=== PATIENT | female | born 1935 | race Asian ===

== ENCOUNTER 2023-10-06 20:40 | Observation (INO) | payer MEDICARE, OTHER, SELFPAY ==
[2023-10-06 15:33] VITALS: BMI 20.7
[2023-10-06 15:39] VITALS: BP 121/59
[2023-10-06 15:43] LABS: Glucose - Point of Care 326 mg/dl (70-99)
[2023-10-06 15:59] LABS: % Basophils 0.3 % (0-2); % Eosinophils 1.5 % (0-6); % Immature Granulocytes 0.7 % (0-0.5); % Monocytes 6.5 % (1.7-9.3); Absolute Eosinophils 0.1 10^3/uL (0-0.7); Absolute Lymphocytes 1.7 10^3/uL (1.2-3.4); Absolute Monocytes 0.4 10^3/uL (0.1-0.6); Absolute Neutrophils 3.9 10^3/uL (1.4-6.5); Hematocrit 33.7 % (37.0-47.0); Hemoglobin 11.1 g/dL (12.0-16.0); Mean Corp Hgb Conc. 32.9 g/dL (33.0-37.0); Mean Corpuscular Hgb 30.1 pg (27.0-31.0); Mean Corpuscular Volume 91.3 fL (81.0-99.0); Mean Platelet Volume 9.5 fL (7.4-10.4); Nucleated Red Blood Cells % 0 %; Platelet Count 317 10^3/uL (130-400); Red Blood Cell Count 3.69 10^6/uL (4.20-5.40); Red Cell Dist. Width 13.8 % (11.5-14.5); White Blood Cell Count 6.1 10^3/uL (4.8-10.8)
[2023-10-06 16:22] LABS: ALT (SGPT) 21 U/L (0-35); AST (SGOT) 27 U/L (14-36); Albumin 4.1 g/dl (3.5-5.0); Alkaline Phosphatase 106 U/L (38-126); Blood Urea Nitrogen 31 mg/dl (7-17); Calcium 9.4 mg/dl (8.4-10.2); Carbon Dioxide 25 mmol/L (22-30); Chloride 102 mmol/L (98-107); Glucose 277 mg/dl (70-99); Potassium 4.7 mmol/L (3.5-5.1); Sodium 138 mmol/L (135-145); Total Bilirubin 0.5 mg/dl (0.2-1.3); Total Protein 6.7 g/dl (6.3-8.2); eGFR 48.63
--- NOTE | 2023-10-06 17:46 | ED.GENMED ---
History of Present Illness
General
Chief Complaint: Dizziness
Time Seen by Provider: 10/06/23 17:33
Travel History
Have you had any contact with someone who has COVID-19?: No
Do you have any symptoms of coronavirus? Fever > 100 degrees, chills, cough, shortness of breath, sore throat, loss of taste or smell, muscle aches, or headache?: No
History of Present Illness
History of Present Illness:
88-year-old female history of atrial fibrillation on Eliquis, CAD, CHF, hypertension, hyperlipidemia, diabetes presenting with visual changes. Patient states that on 10/03, she noticed that she was having double vision while at lunch. Patient
states that she continued to have double vision until yesterday. Patient states that today she was did not have double vision but had blurry vision. Patient reports dizziness secondary to blurry vision. Patient reports chronic right hand numbness
which is unchanged from baseline. Patient denies other numbness, weakness, tingling, slurred speech, fever, chills, chest pain, shortness of breath, or urinary symptoms.
Past History
Past History
ED Past Medical History: Arrthythmia (atrial fibrillation), CAD (nonobstructive), CHF, Fibromyalgia, HTN, Hypercholesterolemia, NIDDM (Diet controlled), Valvular disease, Hypothyroidism, Psychiatric (generalized anxiety disorder), Other ( severe
pulmonary hypertension, vitamin D deficiency, Vertigo,), Other (alopecia, vertigo in 2017, neuropathy, anemia) and Other (bilateral pleural effusions, right-sided pneumonia)
ED Past Surgical History: Appendectomy, Cardiac (Bilateral carotid artery stent, SANTOS, valve replaced), Cholecystectomy, (times 5), Gynecological (Hysterectomy), Orthopedic (right rotator cuff repair; cortisone injections to back) and Other
(cataract extraction 2006, 2007; right thoracentesis January 2020, Dev carotid stents)
Social History
Tobacco: Non-smoker
Alcohol: None
Drug: None
Personal:
Living: alone
Family History
Family History: Other (reviewed and noncontributory)
Phy Exam
Physical Exam
Physical Exam:
General: Alert, no acute distress
Head: NCAT
Eyes: clear conjunctiva, PERRLA, EOMI
Neck: supple
Cardiac: regular rate and rhythm, no murmur
Lungs: clear to auscultation bilaterally. No wheezes, rales, or rhonchi. Speaking full unlabored sentences. No respiratory distress.
Abdomen: soft, nondistended nontender. No rebound or guarding.
MSK: no lower extremity edema bilaterally. No deformity
Skin: warm, dry
Neuro: Alert and oriented x3. Cranial nerves II through XII grossly intact no focal deficits. 5/5 strength bilateral upper lower extremities. No pronator drift bilateral upper and lower extremities. Normal finger-nose. Visual jerez intact, but
patient states fingers are blurry. No slurred speech. Not aphasic.
Course
Orders/Labs/Results
Orders:
Orders
10/06/23 15:42
Electrocardiogram (*1) Urgent
Reason for Study: Vertigo / Dizzy
EKG- Treatment ONCE
10/06/23 15:52
Complete Blood Count/With Diff Urgent
Comprehensive Metabolic Panel Urgent
10/06/23 17:44
CT Head W/o Iv Contrast Urgent
Comment:
Reason For Exam: dizziness, blurry vision
Abnormal Lab Results
10/06/23 10/06/23
15:41 15:52
RBC 3.69 L 10^6/uL
(4.20-5.40)
Hgb 11.1 L g/dL
(12.0-16.0)
Hct 33.7 L %
(37.0-47.0)
MCHC 32.9 L g/dL
(33.0-37.0)
Immature Gran % 0.7 H %
(0-0.5)
BUN 31 H mg/dl
(7-17)
Creatinine 1.1 H mg/dL
(0.6-1.0)
Glucose 277 H mg/dl
(70-99)
POC Glucose 326 H mg/dl
(70-99)
10/06/23 15:52
10/06/23 15:52
Vital Signs
Initial and Last Documented VS:
Initial Vital Signs
Temp Pulse Resp BP Pulse Ox
99.4 F 78 16 121/59 97
10/06/23 15:39 10/06/23 15:39 10/06/23 15:39 10/06/23 15:39 10/06/23 15:39
Last Documented Vital Signs
Temp Pulse Resp BP Pulse Ox
99.4 F 78 16 121/59 97
10/06/23 15:39 10/06/23 15:39 10/06/23 15:39 10/06/23 15:39 10/06/23 15:39
MDM/Problems Addressed
MDM/Problems Addressed:
Patient presents to the Emergency Department with ___blurry vision
Number and Complexity of Problems Addressed at the Encounter
� Chronic conditions affecting care:
� Acute Exacerbation and/or Progression of Chronic Illness:
� Differential Diagnosis includes: Stroke, TIA, intracranial hemorrhage, electrolyte abnormality, medication side effect
Amount and/or Complexity of Data to be Reviewed and Analyzed
� I performed an independent evaluation of and my interpretation is:
EKG: NSR at 77bpm with IL 184 QTc 470 no acute ischemic changes
CT:
Xrays:
Laboratory Studies: Hyperglycemic to 277. Anion gap 11, electrolytes within normal limits. No DKA.
Other:
� Review of other/old records reveals:
� Clinical information was obtained by an independent historian:
� Prescriptions/Medications Considered but not given:
� Further testing considered but not performed:
Risk of Complications and/or Morbidity or Mortality of Patient Management
� Social Determinants of health affecting care:
� Discussion with other providers (PCP, Hospitalists, Consultants, etc):
� Escalation of care including admission/observation vs risk of discharge considered:88yoF hx afib on eliquis, HTN, HLD, CAD, CHF, DM, presenting with visual changes. Patient states she had diplopia starting 2 days ago which improved today, but now
has blurry vision. Patient reports dizziness due to blurry vision. Neurologically intact including visual jerez. CT head unremarkable. Discussed with hospitalist who accepts for admission
*Critical Care Note
Total Time (30-74mins, 75-104mins- exclusive of procedures): Not Applicable
ED Attending Note
-
Portions of this chart may have been created with voice recognition software.� Occasional wrong word or��sound alike� substitutions may have occurred due to the inherent limitations of voice recognition software.
Discharge Plan
Departure
Patient Disposition: Admit
Date of Disposition: 10/06/23
Time of Disposition: 19:16
Admit to: Telemetry
Presentation/result/management discussed w/ accepting MD/DO: Hospitalist
Discharge Problem:
Diplopia
Prescriptions:
No Action
Eliquis 2.5 MG tablet
2.5 mg PO BID Qty: 30 0RF
duloxetine 60 MG capsule,delayed release(DR/EC)
60 mg PO DAILY
amiodarone [Pacerone] 200 MG tablet
100 mg PO DAILY
furosemide 20 MG tablet
60 mg PO DAILY
potassium chloride [Klor-Con M20] 20 MEQ tablet,ER particles/crystals
20 meq PO DAILY
atorvastatin 40 MG tablet
40 mg PO HS
levothyroxine 50 mcg tablet
50 mcg PO DAILY
metformin 1,000 mg tablet
1,000 mg PO BIDWMEAL
allopurinol 300 mg tablet
300 mg PO DAILY@1400
lisinopril 2.5 mg tablet
2.5 mg PO DAILY
gabapentin 300 MG capsule
300 mg PO BID@1400,2200
diltiazem HCl 120 MG capsule,extended release 24hr
120 mg PO DAILY@1400
Referrals:
Tara Anna MD [Family Provider] -
Interventions
Interventions:
*Risk Screen - Suicide Last Done: 10/06/23 17:15
*General Assessment Last Done: 10/06/23 17:15
*Neglect/Abuse Screening Last Done: 10/06/23 17:15
ED- Fall Risk Assessment Last Done: 10/06/23 17:15
*ED COVID-19 Vaccine History Last Done: 10/06/23 15:39
ED- Neurological Assessment Last Done: 10/06/23 17:15
ED- Cardiac Assessment Last Done: 10/06/23 17:15
Discharge Date and Time
Print Language: MALAY
--- NOTE | 2023-10-06 20:26 | HPS.HSE ---
Addendum entered and electronically signed by Sandy Urrutia MD 10/06/23 21:02:
see update for addendum
Original Note:
Family Physician
-
Family Physician: Tara Anna
Chief Complaint
-
Double Vision
History of Present Illness
This is a 88 year old female with a past medical history of a-fib on Eliquis, hypertension, diabetes, hypothyroidism and carotid artery stenosis who presents for double vision x 2 days. She states she was having lunch on Friday and when she got up
to leave, she suddenly started with double vision which led her to feel unsteady on her feet and 'woozy.' She reports double vision as been presents for the past two day. She notes that when she closes one eye, her double vision resolves. She
present to the ED today as vision is now blurry in addition to having double vision. She was admitted in 07/2020 for diplopia and was found to have carotid artery stenosis, but never followed up on this post discharge. She also states she last saw
her ophthalmic nurse 1 month ago and there were no concerns at that time. She denies numbness, weakness in extremities, chest pain, palpitations, photophobia, headache, SOB, lightheadedness, loss of consciousness or notable fall/ trauma to the head.
Medical History
Past Medical History
Past Medical History: Reports Other
Additional Past Medical History:
Carotid Artery Stenosis
Paroxysmal Atrial Fibrillation
Chronic HFpEF
Essential Hypertension
Hyperlipidemia
Diabetes Mellitus, Type II
Hypothyroidism
Anxiety
Fibromyalgia
Peripheral Neuropathy
Gout
Past Surgical History: Reports Other
Additional Past Surgical History:
Mitral Valve Repair
Cholecystectomy
Social History
Tobacco: Non-smoker
Family History
Family History: Not pertinent
Allergies / Home Medications
Allergies reflects when Allergies were last updated in [facility].
Home Medications with original date entered in [facility]
Allergy/Medication List:
Allergies
Allergy/AdvReac Type Severity Reaction Status Date / Time
cyclobenzaprine Allergy Dry Mouth Verified 10/06/23 15:41
ondansetron Allergy Unknown Verified 10/06/23 15:41
prochlorperazine Allergy Anaphylaxis Verified 10/06/23 15:41
Home Medications
apixaban 2.5 mg tablet (Eliquis) 2.5 mg PO BID #30 tabs 02/28/20
duloxetine 60 mg capsule,delayed release 60 mg PO DAILY Mental health 03/21/20
amiodarone 200 mg tablet (Pacerone) 100 mg PO DAILY Arrhythmia 04/14/20
furosemide 20 mg tablet 60 mg PO DAILY Fluid retention/Swelling 04/26/20
atorvastatin 40 mg tablet 40 mg PO HS High cholesterol 08/07/20
potassium chloride 20 mEq tablet,extended release(part/cryst) (Klor-Con M) 20 meq PO DAILY Electrolyte Repletion 08/07/20
allopurinol 300 mg tablet 300 mg PO DAILY@1400 10/06/23
diltiazem HCl 120 mg capsule,extended release 24 hr 120 mg PO DAILY@1400 10/06/23
gabapentin 300 mg capsule 300 mg PO BID@1400,2200 10/06/23
levothyroxine 50 mcg tablet 50 mcg PO DAILY 10/06/23
lisinopril 2.5 mg tablet 2.5 mg PO DAILY 10/06/23
metformin 1,000 mg tablet 1,000 mg PO BIDWMEAL 10/06/23
Review of Systems
-
A 12 point ROS was completed and negative except as noted: Yes
Constitutional: Denies Fever or Chills
Respiratory: Denies Cough or Trouble Breathing
Cardiac: Denies Chest Pain or Palpitations
Physical Exam
Vital Signs
Vital Signs
Temp Pulse Resp BP Pulse Ox
99.4 F 78 16 121/59 97
10/06/23 15:39 10/06/23 15:39 10/06/23 15:39 10/06/23 15:39 10/06/23 15:39
Physical Exam
General: Comfortable and Conversant
HEENT: Anicteric and Moist mucous membranes
Respiratory: Clear and Non Labored Respirations
Cardiac: S1/S2 and Regular Rhythm; No Carotid Bruits
GI: Soft and Non Tender
Musculoskeletal: No Clubbing, No Cyanosis and No Edema
Skin: Warm and Dry
Neuro: Awake, Alert, Oriented, Nonfocal/grossly intact and Other (PERRL: EOM appear intake though exam is difficult due to frequent blinking in setting of double vision; Patient notes double vision is worsen when looking to the periphery )
Psych: Calm
Laboratory Results
-
10/06/23 15:52
10/06/23 15:52
Laboratory Results
Total Bilirubin 0.5 mg/dl (0.2-1.3) 10/06/23 15:52
AST 27 U/L (14-36) 10/06/23 15:52
ALT 21 U/L (0-35) 10/06/23 15:52
Alkaline Phosphatase 106 U/L (38-126) 10/06/23 15:52
Data Reviewed
-
CT Scan: Report Reviewed by me
Lab Data: Labs Reviewed by me
Old Records: Reviewed
Impression/Plan
-
Visual Disturbance, possible TIA/CVA
-Consult Neurology
-Check Brain MRI with/without contrast
-Add aspirin 81mg Daily
-Will likely need further head/neck vessel imaging to be determined by Neurology
Paroxysmal Atrial Fibrillation
-Continue amiodarone and diltiazem
-Continue Eliquis
Chronic HFpEF
-Continue furosemide
-Monitor Is&Os and Daily Weights
Essential Hypertension
-Continue lisinopril
Hyperlipidemia
-Continue atorvastatin
Diabetes Mellitus, Type II
-Hold metformin
-Monitor sugars and continue coverage insulin
Hypothyroidism
-Continue levothyroxine
Fibromyalgia
-Continue duloxetine
Peripheral Neuropathy
-Continue gabapentin
DVT proph: Eliquis
Code Status: Full Code
[2023-10-06] MEDS: LOW STRENGTH ASPIRIN 81 MG PO (20:51)
[2023-10-06 20:52] VITALS: BP 149/65
[2023-10-06 20:53] VITALS: BMI 19.9
--- NOTE | 2023-10-06 20:54 | PTCARENOTE ---
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
--- NOTE | 2023-10-06 21:03 | W.PN.UPDATE ---
Update Note
Progress Note Update
I saw and examined the patient.
The ALESSANDRA Dial's note was reviewed and I agree with the note.
Comment: 88 y/o F, hx of Afib, Eliquis, HTN, DM presents to ER for double vision x 2 days, began Friday at lunch time. Sudden onset with feeling 'woozy' and unsteady. Symptoms have persisted for 2 days. The symptom improves with closing 1 eye. Now
today her vision is blurred. Most previously admitted in july 2020 for diplopia and found to have carotid artery stenosis but did not ollow up. Last saw her eye physician 1 month ago with no concerns. She denies numbness, weakness in extremities,
chest pain, palpitations, photophobia, headache, SOB, lightheadedness, loss of consciousness or notable fall/ trauma to the head. No other complaints.
Physical Exam
General: Comfortable and Conversant
HEENT: Anicteric and Moist mucous membranes
Respiratory: Clear and Non Labored Respirations
Cardiac: S1/S2 and Regular Rhythm; No Carotid Bruits
GI: Soft and Non Tender
Musculoskeletal: No Clubbing, No Cyanosis and No Edema
Skin: Warm and Dry
Neuro: Awake, Alert, Oriented, Nonfocal/grossly intact and Other (PERRL: EOM appear intake though exam is difficult due to frequent blinking in setting of double vision; Patient notes double vision is worsen when looking to the periphery )
Psych: Calm
Assessment:
Visual Disturbance, possible TIA/CVA
-Consult Neurology
-Check Brain MRI with/without contrast
-Add aspirin 81mg Daily to Eliquis
-Will likely need further head/neck vessel imaging to be determined by Neurology (per Dr. Hearn's TT, will assess in AM)
Paroxysmal Atrial Fibrillation
-Continue amiodarone and diltiazem
-Continue Eliquis
Chronic HFpEF
-Continue furosemide
-Monitor Is&Os and Daily Weights
Essential Hypertension
-Continue lisinopril
Hyperlipidemia
-Continue atorvastatin
Diabetes Mellitus, Type II
-Hold metformin
-Monitor sugars and continue coverage insulin
Hypothyroidism
-Continue levothyroxine
Fibromyalgia
-Continue duloxetine
Peripheral Neuropathy
-Continue gabapentin
DVT ppx: Boy
Code Status: Full Code
[2023-10-06 21:46] VITALS: BP 144/69; BMI 19.9
[2023-10-06 21:53] LABS: Glucose - Point of Care 150 mg/dl (70-99)
--- NOTE | 2023-10-06 22:00 | PTCARENOTE ---
Patient admitted from ED. Patient AAO x3, on RA, in no acute distress. Patient placed on tele monitor. Patient oriented to room and call gill is within reach.
[2023-10-06] MEDS: NEURONTIN 300 MG PO (22:05)
[2023-10-06] MEDS: LIPITOR 40 MG PO (22:05)
[2023-10-06] MEDS: MELATONIN 5 MG PO (22:44)
[2023-10-06 23:35] VITALS: BP 95/76
[2023-10-07 03:55] VITALS: BP 115/47
[2023-10-07] MEDS: SYNTHROID 50 MCG PO (05:28)
[2023-10-07 06:00] VITALS: BMI 19.7
[2023-10-07 07:30] VITALS: BP 131/74
[2023-10-07 07:35] LABS: Glucose - Point of Care 124 mg/dl (70-99)
--- NOTE | 2023-10-07 08:14 | W.PN.HOSP.TC ---
Addendum entered and electronically signed by Crescencio Lo DO 10/07/23 14:27:
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
The stroke likely explains her vision complaints on admission. Discussed with neurology. Recommend to continue Eliquis on discharge. Hold off on adding aspirin and they will reconsider as outpatient.
MRA head and neck shows severe stenosis greater than 70% diameter in the proximal right internal carotid artery, less than 25% stenosis of the proximal left internal carotid artery. Carotid stenosis would not explain her stroke.
Neurology recommends discharge with outpatient follow-up.
I updated daughter (Milla) on the phone. Recommend tighter glucose control. Hemoglobin A1c 8.0%. Also recommend that patient start checking her blood pressures at home to tighten up her hypertension control.
Follow-up with PCP and neurology, vascular surgery.
Addendum entered and electronically signed by Crescencio Lo DO 10/07/23 08:52:
I spoke with neurology, Dr. Valenzuela does not feel that her vision complaints are vascular in etiology. He believes it is due to extraocular muscle dysfunction. Possibly neuropathy related. Await MRI. Does not recommend vascular consult.
Original Note:
Today's Communication/Plan
-
Await brain MRI
Neurology consult
Assessment / Plan
Assessment / Plan
Gen-AAOx3, NAD
HEENT-NC, AT, anicteric, clear oral mm
Neck-supple
CV-reg, no M, +S1/S2
Lungs-clear B/L
Abd-soft, NT, ND
Ext-no edema
Musculoskeletal-no cyanosis, clubbing
Skin-warm and dry
Neuro-grossly non-focal
Psych-calm, cooperative
Diplopia -primarily involving the right eye, symptoms started on October 03. Extraocular muscles intact. Known significant right carotid stenosis. Concern for stroke. Await brain MRI. Neurology consulted. Aspirin added.
Right carotid stenosis -confirmed on CTA July 2020, proximal right ICA stenosis 70 to 75%. Left carotid without significant narrowing. Dominant right vertebral artery.
Paroxysmal atrial fibrillation -continue amiodarone, Eliquis.
Chronic heart failure preserved EF -stable.
Essential hypertension -stable.
Hyperlipidemia -continue atorvastatin.
DM2 with hyperglycemia -hemoglobin A1c pending. On metformin 1000 mg twice daily at home.
Hypothyroidism -continue levothyroxine.
Fibromyalgia
Chronic peripheral neuropathy
Gout
Full code
Anticipated Discharge: Within 24 hours
Subjective/Interval History
-
Date of Service: October 07, 2023
Patient seen and examined. Still with blurry vision.
Objective Data
-
Labs:
Laboratory Results
10/07/23
07:57
WBC Pending
Hgb Pending
Hct Pending
Plt Count Pending
Sodium Pending
Potassium Pending
Chloride Pending
Carbon Dioxide Pending
BUN Pending
Creatinine Pending
Glucose Pending
Calcium Pending
Vital Signs:
Vital Signs
Temp Pulse Resp BP Pulse Ox
98 F 80 16 131/74 96
10/07/23 07:30 10/07/23 07:30 10/07/23 07:30 10/07/23 07:30 10/07/23 07:30
I&O
10/06/23 10/07/23 10/08/23
06:59 06:59 06:59
Output Total 150 / 150
Balance -150 / -150
Review of Systems
-
History Source: Patient
All other systems: Reviewed and negative
[2023-10-07] MEDS: NOVOLOG FLEXPEN-LOW RESISTANCE SC (08:25)
[2023-10-07 08:28] LABS: Hematocrit 37.2 % (37.0-47.0); Hemoglobin 11.9 g/dL (12.0-16.0); Mean Corpuscular Hgb 29.8 pg (27.0-31.0); Mean Platelet Volume 9.7 fL (7.4-10.4); Platelet Count 352 10^3/uL (130-400); Red Cell Dist. Width 13.7 % (11.5-14.5); White Blood Cell Count 7.5 10^3/uL (4.8-10.8)
[2023-10-07] MEDS: KCL 20 MEQ PO (08:30)
[2023-10-07] MEDS: LASIX 60 MG PO (08:30)
[2023-10-07] MEDS: PACERONE 100 MG PO (08:31)
[2023-10-07] MEDS: ZESTRIL 2.5 MG PO (08:31)
[2023-10-07] MEDS: CYMBALTA DELAYED RELEASE 60 MG PO (08:31)
[2023-10-07] MEDS: ELIQUIS 2.5 MG PO (08:31)
--- NOTE | 2023-10-07 08:31 | CON.NEURO4 ---
Addendum entered and electronically signed by Yan Valenzuela MD 10/07/23 13:43:
MRI of the brain demonstrates an acute ischemic stroke in the right 6th nerve nucleus. This does not unfortunately alter our current course of the patient which would be a goal of normoglycemia.
Addendum entered and electronically signed by Yan Valenzuela MD 10/07/23 10:48:
Studies reviewed.
I have personally examined the patient. I reviewed and agree with the COMMUNITY HEALTH PLANNING DIRECTOR's Note.
My addenda:
Awake, alert, interactive. No acute distress.
Speech intact.
Follows 2-step requests w/o difficulty. No tremor.
Extra-ocular movements grossly intact.
Facial movements full and symmetric. Hearing intact to normal conversational volume.
Normal UE movements bilaterally.
Neck: full ROM.
Chest: no dyspnea
Heart: no JVD
Ext: (-) Clubbing, (-) Cyanosis, (-) Edema
IMPRESSIONS/RECOMMENDATIONS:
Abrupt onset of recurrent diplopia, last in 2020
Most likely due to eye misalignment which in turn is most likely secondary to elevated glucose
Check blood work for potential metabolic causes
Patient should meet with [employer]oure[employer] printer or van driver helper for eye alignment exercises to help remediate
We will follow MRI of brain and MRA of neck
Eventual evaluation by vascular surgery due to known carotid artery narrowing
Will continue to follow pending results.
Original Note:
Documented by User: Domi Pfeiffer NP 10/07/23 10:07
Consultation - Neurology 4
-
CONSULTING PHYSICIAN: Yan Valenzuela MD
REFERRING PHYSICIAN: Hospitalists/Aury Dial PA-C
DICTATED BY: SUMA Mccurdy
DATE/TIME OF REQUEST: 10/06/23
DATE/TIME OF CONSULTATION: 10/07/23
Reason for Consultation: Diplopia
History of Present Illness:
This is an 88-year-old right-handed female who has presented to the hospital on 5/13/24 with report of diplopia. Patient was previously evaluated by our inpatient Neurology service in July 2020 for similar symptoms.
From previous evaluation by Dr. Valenzuela on 08/07/20:
'Patient presented to this hospital's emergency department with new onset diplopia. 'It's not double vision.' Today at 0600 hours while watching TV, she realized that she was experiencing blurred vision. The patient indicates that she has had
difficulty with sleep and while sitting in front of the television early this morning, experienced the above listed symptom. The patient then stood looked at her own reflection in the mirror and described that reflection as being blurred as were all
objects around her for the following 2 hours. She suggests the problem spontaneously resolved in a gradual fashion. There was no loss of vision. The visual defect was unchanged by bringing objects closer or further. She did not cross cover eyes
during this episode. There have been no prior episodes. Associated symptoms at the time included feeling unsteady on her feet although this is not been a new process. No known modifying factors.
Patient has been experiencing difficulty with staying asleep due to resistance left lower extremity pain which began July 26, 2020. She contacted her primary care physician about this issue and was prescribed gabapentin 100 milligrams at bedtime.
The patient did not begin utilizing that medication until 2 days ago.
She describes her left lower extremity pain as a burning type of sensation which begins distally and radiates up the leg anteriorly crossing at the thigh into mid back above the buttocks. The problem in her left lower extremity associated very that
she strikes her left lower extremity with her right foot bruising the leg. Pain is worse at night. She is more comfortable with her left lower extremity when she bends that knee and is seated instead of reclining.
She also describes herself as having had significant back pain beginning years ago after lifting a heavy object. That location of back pain however is described as mid thoracic in location has been persistent with attempting to lift objects. No
known modifying factors.'
Patient had a MRI brain was obtained and was negative for any acute abnormalities but demonstrated a likely old left occipital lobe infarct and two small foci of old microhemorrhage. MRA neck demonstrated 50-75% R ICA stenosis. Carotid ultrasound
demonstrated 50-69% R ICA stenosis, and CTA neck demonstrated 70-75% R ICA stenosis. Her transient diplopia was thought less likely to be related to R ICA stenosis and she was instructed to follow-up with Vascular Surgery as an outpatient for
carotid surveillance imaging every 6 months. Patient failed to follow-up outpatient.
Patient reports that three days ago on 10/04/23 she was at lunch in the afternoon and when she got up to leave she had a sudden onset of double vision again. The double vision resolved with closing one eye or the other, but persisted through
yesterday (10/06/23), prompting her to come to the ER for evaluation. CT head was obtained on arrival and is negative for any acute findings. On arrival to the ER patient reported that her double vision had turned more into a vision blurring, which
she still endorses today. She denies any headache, dizziness, loss of vision, curtain covering vision, speech/swallow difficulty, nausea, new numbness, weakness, chest pain, palpitations, and shortness of breath. She is taking Eliquis for Afib and
denies missing any doses. She is followed by an van driver helper and reports having a normal exam a little over one month ago.
Past Medical History: Chronic left occipital lobe ischemic stroke, Afib (Eliquis), HTN, HLD, NIDDM, CHF, CAD, bilateral carotid artery stenosis, hypothyroidism, severe mitral regurgitation, gout, vertigo, neuropathy, chronic RUE numbness, anemia,
alopecia, anxiety, depression, fibromyalgia, chronic low back pain, LLE sciatica, B12 deficiency, vitamin D deficiency, insomnia, b/l pleural effusions, pneumonia
Surgical History: b/l cataract extraction, appendectomy, cholecystectomy, right RTC repair, R thoracentesis, mitral valve repair, knee surgery, x5, cortisone injections
Family History: Mother- CVA, sister- CVA.
Social History: Former smoker. Occasional alcohol. Denies illicit drug use.
Allergies: Cyclobenzaprine, ondansetron, prochlorperazine.
Home Medications: See below.
Review of Symptoms:
Patient denies any fever, headache, chest pain, shortness of breath, GI or symptoms.
�Per the HPI.�All systems are reviewed negative except above.
Physical Exam:
The patient is afebrile, abdomen is nondistended, breathing is unlabored, skin is warm and dry, no edema.
NIH Stroke Scale:
I performed the NIH stroke scale on the patient on 10/07/23 at 0830. The patient scored 0 points on the NIH stroke scale assessment, which were assigned as follows: See below.
Neurologic Examination:
The patient is awake, alert and oriented x 3. She is able to follow commands and answer questions appropriately. There is no aphasia or dysarthria. On cranial nerve assessment, pupils are 3 mm bilateral, round and reactive to light and
accommodation. Visual dent are full. Extraocular movements are restricted bilaterally with upgaze. Facial sensations are intact and bilaterally symmetrical, there is no facial asymmetry. Hearing is intact bilaterally to normal conversation
volume. Tongue palate and uvula are midline. Sternocleidomastoid strengths are full bilaterally. Motor strengths are 5/5 bilateral upper and lower extremities on medical research [place] scale. There is no drift or involuntary movement noted. Deep
tendon reflexes are 1+ bilateral upper and absent bilateral lower extremities and Babinski is absent bilaterally. There was no extinction noted on double simultaneous stimulation. Coordination is intact by finger to nose bilaterally.
Lab Results: See below.
Neuro Imaging:
1. CT Head 10/06/23: No acute intracranial abnormality noted.
Differentials for the patient's presentation include:
1. Diplopia likely due to an eye misalignment issue or metabolic disturbance.
2. Low concern for stroke or symptomatic carotid stenosis producing diplopia/blurry vision, but cannot entirely exclude this.
3. NIDDM.
Patient has the following risk factors for their symptoms: HTN, HLD, NIDDM, previous diplopia, carotid stenosis.
IV Tenecteplase/IAT candidacy: She was not a candidate due to low NIHSS and outside of time window.
Recommendations:
-Continue home Eliquis 2.5mg BID, discontinue aspirin.
-Goal normotension.
-MRI brain noncontrast, MRA neck, carotid ultrasound ordered/pending.
-Checking blood work for metabolic abnormalities, see orders.
-LDL goal <70. LDL is 67. Continue home atorvastatin 40mg daily.
-Goal normoglycemia, hbA1c is 8.0.
-NIHSS and neurological checks per unit guidelines.
-Provide patient with a stroke education packet.
-PT/OT/ST evaluations.
-Patient needs follow-up with Vascular Surgery, pending results, this can likely be done as an outpatient.
-Patient needs outpatient follow-up with her van driver helper.
-Will follow pending results.
Discussed patient care with: Dr. Valenzuela, the patient
Vital Signs and Labs
-
Vital Signs and Labs:
Vital Signs
Temp Pulse Resp BP Pulse Ox
98 F 80 16 131/74 96
10/07/23 07:30 10/07/23 07:30 10/07/23 07:30 10/07/23 07:30 10/07/23 07:30
Lab Results
10/07/23 07:57
10/07/23 07:57
Sodium 140 mmol/L (135-145) 10/07/23 07:57
Potassium 4.7 mmol/L (3.5-5.1) 10/07/23 07:57
BUN 31 mg/dl (7-17) H 10/07/23 07:57
Glucose 143 mg/dl (70-99) H 10/07/23 07:57
Calcium 10.1 mg/dl (8.4-10.2) 10/07/23 07:57
LDL Cholesterol, Calc 67 mg/dl 10/07/23 07:57
Medications
-
Active Medications
Generic Name Dose Route Start Last Admin
Trade Name Freq PRN Reason Stop Dose Admin
Acetaminophen 650 mg 10/06/23 21:38
Acetaminophen 650 Mg Rectal Suppository RECTAL 11/03/23 21:37
Q4HPRN PRN
MODI, mild pain, or temp >100.4F
Acetaminophen 650 mg 10/06/23 21:38
Acetaminophen 325 Mg Tablet PO 11/03/23 21:37
Q4HPRN PRN
MODI, mild pain, or temp >100.4F
Allopurinol 300 mg 10/07/23 14:00
Allopurinol 300 Mg Tablet PO 11/04/23 13:59
DAILY@1400 TERRI
Amiodarone HCl 100 mg 10/07/23 08:00 10/07/23 08:31
Amiodarone 100 Mg Tablet PO 11/04/23 07:59 100 mg
DAILY TERRI Administration
Apixaban 2.5 mg 10/07/23 08:00 10/07/23 08:31
Apixaban (Eliquis) 2.5 Mg Tablet PO 11/04/23 07:59 2.5 mg
BID TERRI Administration
Atorvastatin Calcium 40 mg 10/06/23 22:00 10/06/23 22:05
Atorvastatin (Lipitor) 40 Mg Tablet PO 11/03/23 21:59 40 mg
HS TERRI Administration
Dextrose 12.5 grams 10/06/23 21:38
Dextrose 50% (0.5 Grams/Ml) 50 Ml Syringe IV 11/03/23 21:37
[id number] PRN
hypoglycemia
Protocol
Diltiazem HCl 120 mg 10/07/23 14:00
Diltiazem 120 Mg Extended Release (24 H) Capsule PO 11/04/23 13:59
DAILY@1400 TERRI
Duloxetine HCl 60 mg 10/07/23 08:00 10/07/23 08:31
Duloxetine Delayed Release 60 Mg Capsule PO 11/04/23 07:59 60 mg
DAILY TERRI Administration
Furosemide 60 mg 10/07/23 08:00 10/07/23 08:30
Furosemide 20 Mg Tablet PO 11/04/23 07:59 60 mg
DAILY TERRI Administration
Gabapentin 300 mg 10/06/23 22:00 10/06/23 22:05
Gabapentin 300 Mg Capsule PO 11/03/23 21:59 300 mg
BID@1400,2200 TERRI Administration
Glucagon 1 mg 10/06/23 21:38
Glucagon 1 Mg Vial IM 11/03/23 21:37
PRN PRN
hypoglycemia
Protocol
Insulin Aspart 0 units 10/07/23 07:30 10/07/23 08:25
Insulin Aspart Low Resistance 300 Units/3 Ml Pen.Injctr SC 11/04/23 07:29 Not Given
AC TERRI
Protocol
Levothyroxine Sodium 50 mcg 10/07/23 06:00 10/07/23 05:28
Levothyroxine 50 Mcg Tablet PO 11/04/23 05:59 50 mcg
DAILY @ 0600 TERRI Administration
Lisinopril 2.5 mg 10/07/23 08:00 10/07/23 08:31
Lisinopril 2.5 Mg Tablet PO 11/04/23 07:59 2.5 mg
DAILY TERRI Administration
Lorazepam 1 mg 10/06/23 20:24
Lorazepam 2 Mg/Ml Vial IV 11/03/23 20:23
ONCE PRN
Give 15 min prior to MRI
Potassium Chloride 20 meq 10/07/23 08:00 10/07/23 08:30
Potassium Chloride 20 Meq Extended Release Tablet PO 11/04/23 07:59 20 meq
DAILY TERRI Administration
Sodium Chloride 0.5 ml 10/06/23 20:51
Nss (Pf) 10 Ml Vial For Ativan 1 Mg Dose IV 10/07/23 20:50
ONCE PRN PRN
IV LORAZEPAM DILUTION
Sodium Chloride 0 flush 10/06/23 22:00
Sodium Chloride 0.9% (Flush) Syringe IV 11/03/23 21:59
PER PROTOCOL TERRI
Home Medications
�Medication �Instructions �Recorded
apixaban 2.5 mg tablet (Eliquis) 2.5 mg PO BID #30 tabs 02/28/20
duloxetine 60 mg capsule,delayed 60 mg PO DAILY Mental health 03/21/20
release
amiodarone 200 mg tablet (Pacerone) 100 mg PO DAILY Arrhythmia 04/14/20
furosemide 20 mg tablet 60 mg PO DAILY Fluid 04/26/20
retention/Swelling
atorvastatin 40 mg tablet 40 mg PO HS High cholesterol 08/07/20
potassium chloride 20 mEq 20 meq PO DAILY Electrolyte 08/07/20
tablet,extended Repletion
release(part/cryst) (Klor-Con M)
allopurinol 300 mg tablet 300 mg PO DAILY@1400 10/06/23
diltiazem HCl 120 mg 120 mg PO DAILY@1400 10/06/23
capsule,extended release 24 hr
gabapentin 300 mg capsule 300 mg PO BID@1400,2200 10/06/23
levothyroxine 50 mcg tablet 50 mcg PO DAILY 10/06/23
lisinopril 2.5 mg tablet 2.5 mg PO DAILY 10/06/23
metformin 1,000 mg tablet 1,000 mg PO BIDWMEAL 10/06/23
NIH Stroke Score
Subsequent NIH Scale
Date of Subsequent NIH Scale: 10/07/23
Time of Subsequent NIH Scale: 08:30
NIH Stroke Score
Level of Consciousness: 0 - Alert
LOC Questions: 0-Answers both correctly
LOC Commands: 0-Performs both correctly
Best Horizontal Gaze: 0-Normal
Visual Dent: 0=Normal, no visual loss
Facial Palsy: 0=Normal, symmetrical
Motor - Right Arm: 0=No drift 10 seconds
Motor - Left Arm: 0=No drift 10 seconds
Motor - Right Le-No drift 5 seconds
Motor - Left Le-No drift 5 seconds
Limb Ataxia: 0-Absent
Sensation: 0-Normal
Best Language: 0-No aphasia
Dysarthria: 0-Normal
Extinction and Inattention: 0-No abnormality
Total Score:: 0
Modified [place] (mRS) Score
Modified [place] Scale (mRS): No significant disability. Able to carry out usual activities.
Score: 1

Documented by User: Yan Valenzuela MD 10/07/23 10:39
NIH Stroke Score
NIH Stroke Score
Total Score:: 0
Modified [place] (mRS) Score
Score: 1
--- NOTE | 2023-10-07 09:04 | PTOTSP ---
ST Acute Care Evaluation
Pt presents with functional oropharyngeal and esophageal parameters safe for all solid and liquid PO intake. No overt s/s of penetration or aspiration observed at bedside with the consistencies listed above.
Pt denies any difficulties with her speech, language, or cognition. No noticeable deficits observed at bedside. No additional cognitive linguistic testing warranted at this time.
Recommendations:
- Continue with regular solids, thin liquids, meds as tolerated.
- General aspiration precautions.
- SHANK SCOURER to sign off as no skilled needs identified at this time. Please re-consult if anything changes. Thank you.
[2023-10-07 09:16] LABS: Blood Urea Nitrogen 31 mg/dl (7-17); Calcium 10.1 mg/dl (8.4-10.2); Carbon Dioxide 28 mmol/L (22-30); Chloride 103 mmol/L (98-107); Estimated Creatinine Clearance 28 ml/min; Glucose 143 mg/dl (70-99); HDL Cholesterol 57 mg/dl; LDL Cholesterol, Calculated 67 mg/dl; Magnesium 1.6 mg/dl (1.6-2.3); Potassium 4.7 mmol/L (3.5-5.1); Sodium 140 mmol/L (135-145); Total Cholesterol 174 mg/dl (50-199); Triglyceride 253 mg/dl (10-149); Very Low Density Lipoprotein 50 mg/dl (0-30); eGFR 54.53
[2023-10-07 11:17] LABS: Ferritin 55.7 ng/ml (11.1-264.0)
[2023-10-07 11:20] LABS: TSH Reflex To Free T4 2.63 uIU/ml (0.47-4.68)
[2023-10-07 11:48] LABS: Folate 19.5 ng/ml (2.76-20); Vitamin B12 294 pg/ml (239-931)
[2023-10-07 11:50] VITALS: BP 111/84
[2023-10-07 11:55] LABS: Glucose - Point of Care 301 mg/dl (70-99)
[2023-10-07] MEDS: ATIVAN 1 MG IV (11:57)
[2023-10-07] MEDS: NSS (PRESERVATIVE FREE) 0.5 ML IV (11:58)
--- NOTE | 2023-10-07 12:24 | CM ---
Patient seen bedside.
IA completed.
Patient lives alone in a 3 story home with 2 steps to enter thru the garage.
patient independent prior to admission.
patient has walkers and a cane.
Does not use walkers they were from prior knee surgery, just recently started using the cane.
Patient had [facility] in the past. Patient also attended outpatient therapy.
Patients sister will transport home.
[facility] form completed.
Plan: home no needs.
[2023-10-07] MEDS: NOVOLOG FLEXPEN-LOW RESISTANCE 4 UNITS SC (14:09)
[2023-10-07] MEDS: CARDIZEM CD 120 MG PO (14:09)
[2023-10-07] MEDS: NEURONTIN 300 MG PO (14:09)
[2023-10-07] MEDS: VITAMIN B-12 1000 MCG PO (14:10)
[2023-10-07] MEDS: ZYLOPRIM 300 MG PO (14:10)
--- NOTE | 2023-10-07 14:21 | W.DS.TRANS ---
DC Summary - [facility]
-
Discharge Instructions:
Sleep Apnea Risk Low
Discharge Diagnosis/Procedures Acute stroke
Diet Diabetic, Carb Controlled,Low Fat,Low
Cholesterol
Activity As tolerated
Driving Restrictions Not until seen by your Dr
Bathing Restrictions None
Instructions:
Stand-Alone Forms:
Changes to Home Medications: No
Discharge Medications:
DC Medications w/original date entered in [facility]
apixaban 2.5 mg tablet (Eliquis) 2.5 mg PO BID #30 tabs 02/28/20
duloxetine 60 mg capsule,delayed release 60 mg PO DAILY Mental health 03/21/20
amiodarone 200 mg tablet (Pacerone) 100 mg PO DAILY Arrhythmia 04/14/20
furosemide 20 mg tablet 60 mg PO DAILY Fluid retention/Swelling 04/26/20
atorvastatin 40 mg tablet 40 mg PO HS High cholesterol 08/07/20
potassium chloride 20 mEq tablet,extended release(part/cryst) (Klor-Con M) 20 meq PO DAILY Electrolyte Repletion 08/07/20
allopurinol 300 mg tablet 300 mg PO DAILY@1400 Gout 10/06/23
diltiazem HCl 120 mg capsule,extended release 24 hr 120 mg PO DAILY@1400 Heart Disease/Condition 10/06/23
gabapentin 300 mg capsule 300 mg PO BID@1400,2200 Pain 10/06/23
levothyroxine 50 mcg tablet 50 mcg PO DAILY Thyroid 10/06/23
lisinopril 2.5 mg tablet 2.5 mg PO DAILY Blood Pressure 10/06/23
metformin 1,000 mg tablet 1,000 mg PO BIDWMEAL Diabetes 10/06/23
cyanocobalamin (vitamin B-12) 1,000 mcg tablet 1,000 mcg PO DAILY #0 tabs 10/07/23
Home Medication Changes
Pending Results: No
[2023-10-07 15:27] VITALS: BP 126/62
== END 2023-10-07 16:19 | disposition home or self-care (01) ==
LOC: 4 WEST ACU 20:40
PROVIDERS: Physician Assistant Medical; ADMITTING PHYSICIAN Internal Medicine; ATTENDING PHYSICIAN Hospitalist; EMERGENCY PHYSICIAN Emergency Medicine; FAMILY PHYSICIAN Internal Medicine; OTHER PHYSICIAN Psychiatry & Neurology Neurology
DX: I63.9 Cerebral infarction, unspecified (principal); H53.2 Diplopia; R42 Dizziness and giddiness; I48.0 Paroxysmal atrial fibrillation; I50.32 Chronic diastolic (congestive) heart failure; I65.23 Occlusion and stenosis of bilateral carotid arteries; I11.0 Hypertensive heart disease with heart failure; I25.10 Atherosclerotic heart disease of native coronary artery without angina pectoris; E11.42 Type 2 diabetes mellitus with diabetic polyneuropathy; E78.00 Pure hypercholesterolemia, unspecified; M79.7 Fibromyalgia; I27.20 Pulmonary hypertension, unspecified; G89.29 Other chronic pain; F32.A Depression, unspecified; I34.0 Nonrheumatic mitral (valve) insufficiency; E03.9 Hypothyroidism, unspecified; M79.605 Pain in left leg; M54.6 Pain in thoracic spine; M10.9 Gout, unspecified; F41.9 Anxiety disorder, unspecified; Z95.5 Presence of coronary angioplasty implant and graft; Z79.01 Long term (current) use of anticoagulants; Z79.890 Hormone replacement therapy; Z79.84 Long term (current) use of oral hypoglycemic drugs; Z90.49 Acquired absence of other specified parts of digestive tract; Z88.8 Allergy status to other drugs, medicaments and biological substances; Z82.3 Family history of stroke; Z87.891 Personal history of nicotine dependence
CPT/HCPCS: 70450; 70548; 70551; 80048; 80053; 80061; 82607; 82728; 82746; 82962; 83036; 83735; 84443; 85025; 85027; 92610; 93005; 93306; 93880; 97161; 97165; 99285; A9585; G0378

== ENCOUNTER → 2023-12-16 11:53 | Outpatient (REF) | payer MEDICARE, OTHER, SELFPAY | LOC: RAD 11:53 | PROVIDERS: ATTENDING PHYSICIAN Surgery Vascular Surgery; FAMILY PHYSICIAN Family Medicine | DX: I65.29 Occlusion and stenosis of unspecified carotid artery (principal) | CPT/HCPCS: 70496; 70498; Q9967 ==

== ENCOUNTER → 2025-05-03 15:33 | Outpatient (REF) | payer MEDICARE, OTHER, SELFPAY | LOC: RAD 15:33 | PROVIDERS: ATTENDING PHYSICIAN Surgery Vascular Surgery; FAMILY PHYSICIAN Nurse Practitioner Acute Care | DX: I65.29 Occlusion and stenosis of unspecified carotid artery (principal) | CPT/HCPCS: 93880 ==